=== PATIENT | female | born 1965 | race Caucasian/White ===

== ENCOUNTER 2020-12-24 10:41 | Day surgery (SDC) | payer BC ==
[~2020-12-24 10:41] MED LIST: Lactated Ringers 1,000 ML IV SCH; Lidocaine 1%/Sod Bicarbonate in NS 8.4% 1 ML Syringe IDERM PRN; Sodium Chloride 0.9% 10 ML Syringe FLUSH PRN
--- NOTE | 2020-12-24 11:24 | PCM.PREANE ---
Preanesthetic Assessment - Procedure Proposed Procedure: Left carpal tunnel release and right carpal tunnel inj. - Anesthesia/Transfusion/Family Hx Anesthesia History: Prior Anesthesia Without Reaction Family History of Anesthesia Reaction: No Transfusion History: No Prior Transfusion(s) - Review of Systems General: No Symptoms Pulmonary: Cough (smokers) Cardiovascular: No Symptoms Gastrointestinal: No Symptoms Neurological: Numbness (bilateral wrists ) Other: Reports: Diabetes (gluco check at 11:00 101) - Physical Assessment Vital Signs: Last Vital Signs Temp 36.8 C 12/24/20 10:45 Pulse 60 12/24/20 10:45 Resp 16 12/24/20 10:45 BP 123/80 12/24/20 10:45 Pulse Ox 95 12/24/20 10:45 Height: 1.6 m Weight: 73 kg ASA Class: 2 Mental Status: Alert & Oriented x3 Airway Class: Mallampati = 1 Dentition: Reports: Broken Tooth/Teeth Thyro-Mental Finger Breadths: 3 Mouth Opening Finger Breadths: 3 ROM/Head Extension: Full Lungs: Clear to Auscultation, Normal Respiratory Effort, Decreased Breath Sounds (bases clear on cough) Cardiovascular: Regular Rate, Regular Rhythm - Lab Values: Laboratory Last Values POC Glucose 101 mg/dL (70-99) H 12/24/20 10:53 - Allergies Allergies/Adverse Reactions: Allergies Allergy/AdvReac Type Severity Reaction Status Date / Time LB Inhibitors Allergy Cough Verified 12/24/20 11:12 - Anesthesia Plan Pre-Op Medication Ordered: Beta Juan Beta Juan: Metoprolol Med Last Dose Date: 12/24/20 Med Last Dose Time: 09:00 - Acknowledgements Anesthesia Type Planned: MAC Pt an Appropriate Candidate for the Planned Anesthesia: Yes Alternatives and Risks of Anesthesia Discussed w Pt/Guardian: Yes Pt/Guardian Understands and Agrees with Anesthesia Plan: Yes PreAnesthesia Questionnaire Cardiovascular History: Reports: High Cholesterol, Hypertension Respiratory History: Reports: Bronchitis, Recurrent Gastrointestinal History: Reports: None Genitourinary History: Reports: None COMMUNITY AFFAIRS MANAGER History: Reports: None Musculoskeletal History: Reports: Other (See Below) Other Musculoskeletal History: carpal tunnel syndrome Neurological History: Reports: None Psychiatric History: Reports: None Endocrine/Metabolic History: Reports: Diabetes, Type II, Obesity/BMI 30+ Hematologic History: Reports: None Immunologic History: Reports: None Oncologic (Cancer) History: Reports: None Dermatologic History: Reports: Other (See Below) Other Dermatologic History: contact dermatitis, periapical abcess - Infectious Disease History Infectious Disease History: Reports: None - Past Surgical History Head Surgeries/Procedures: Reports: None HEENT Surgical History: Reports: Naso-Sinus Surgery, Tonsillectomy Cardiovascular Surgical History: Reports: None Respiratory Surgical History: Reports: None GI Surgical History: Reports: Appendectomy, Colonoscopy Female Surgical History: Reports: Hysterectomy Male Surgical History: Reports: None Endocrine Surgical History: Reports: None Neurological Surgical History: Reports: None Musculoskeletal Surgical History: Reports: None Oncologic Surgical History: Reports: None Dermatological Surgical History: Reports: None - SUBSTANCE USE Tobacco Use Status *Q: Current Every Day Tobacco User Tobacco Use Within Last Twelve Months: Cigarettes Second Hand Smoke Exposure: Yes Recreational Drug Use History: No - HOME MEDS Home Medications: Home Meds Buprenorphine HCl/Naloxone HCl [Buprenorphine-Nalox 8-2Mg Film] 2 film PO DAILY 12/23/20 [History] Empagliflozin [Jardiance] 25 mg PO DAILY 12/23/20 [History] Ibuprofen 600 mg PO TID PRN #10 tablet 12/23/20 [Rx] Metoprolol Succinate [Toprol Xl] 50 mg PO DAILY 12/23/20 [History] Multivitamin [Super Multivitamin] 1 tab PO DAILY 12/23/20 [History] atorvaSTATin [Lipitor] 10 mg PO DAILY 12/23/20 [History] - CURRENT (IN HOUSE) MEDS Current Meds: Current Medications Lactated Ringer's (Ringers, Lactated) 1,000 mls @ 125 mls/hr IV ASDIRECTED CHRISTA Stop: 12/24/20 23:00 Last Admin: 12/24/20 11:13 Dose: 125 mls/hr Documented by: Lidocaine/Sodium Bicarbonate (Lidocaine 1%/Sod Bicarbonate In Ns 8.4% 1 Ml Syringe) 0.25 ml IDERM ONETIME PRN PRN Reason: Prior to IV Start Stop: 12/24/20 18:00 Sodium Chloride (Sodium Chloride 0.9% 10 Ml Syringe) 10 ml FLUSH ASDIRECTED PRN PRN Reason: Keep Vein Open Stop: 12/24/20 18:00
[2020-12-24] MEDS ORDERED: Midazolam 1 MG/ML 2 ML SDV ONE (11:33)
[2020-12-24] MEDS ORDERED: Lidocaine 1% 4 ML ONE (11:33)
[2020-12-24] MEDS ORDERED: Propofol 200 MG/20 ML SDV ONE ×2 (11:33→12:30)
[2020-12-24] MEDS ORDERED: Lidocaine 1% 30 ML SDV ONE (11:55)
[2020-12-24] MEDS ORDERED: Bupivacaine 0.25% 10 ML SDV ONE (11:55)
[2020-12-24] MEDS ORDERED: Triamcinolone Acetonide 40 MG/ML 1 ML SDV ONE (11:55)
--- NOTE | 2020-12-24 12:51 | PCM48HPAN ---
Post Anesthesia Note - EVALUATION WITHIN 48HRS OF ANESTHETIC Vital Signs in Normal Range: Yes Patient Participated in Evaluation: Yes Respiratory Function Stable: Yes Airway Patent: Yes Cardiovascular Function Stable: Yes Hydration Status Stable: Yes Pain Control Satisfactory: Yes Nausea and Vomiting Control Satisfactory: Yes Mental Status Recovered: Yes Vital Signs: Last Vital Signs Temp 36.8 C 12/24/20 10:45 Pulse 60 12/24/20 10:45 Resp 16 12/24/20 10:45 BP 123/80 12/24/20 10:45 Pulse Ox 95 12/24/20 10:45
--- NOTE | 2020-12-24 12:53 | PCM.OPNOTE ---
- General Post-Op/Procedure Note Date of Surgery/Procedure: 12/24/20 Operative Procedure(s): left carpal tunnel release with right carpal tunnel injection Pre Op Diagnosis: bilateral median nerve compression neuropathy Post-Op Diagnosis: Same Anesthesia Technique: Local, MAC Primary Surgeon: Cameron Blake Anesthesia Provider: Bill Yeager Sap Abap Programmer: Lidia Liz EBL in mLs: 5 Complications: None Condition: Good
--- NOTE | 2021-01-06 07:27 | OR ---
DATE OF OPERATION: 12/24/2020 SURGEON: Cameron Blake MD OPERATION PERFORMED: Left carpal tunnel release with right carpal tunnel injection. PREOPERATIVE DIAGNOSIS: Bilateral median nerve compression neuropathy. POSTOPERATIVE DIAGNOSIS: Bilateral median nerve compression neuropathy. ANESTHESIA: Local MAC with spinal. ANESTHESIA PROVIDER: Bill Yeager CRNA CRIMPER OPERATOR: Lidia Liz PA-C ESTIMATED BLOOD LOSS: Less than 5 mL. COMPLICATIONS: None. CONDITION: Stable. DESCRIPTION OF PROCEDURE: The patient was identified in the preop holding area. Proper site was marked and identified by the surgeon. The patient was taken back to the operating theater where after adequate anesthesia, the patient's left upper extremity was sterilely prepped and draped in the usual sterile fashion. OR time-out was performed. The patient did not receive antibiotics and it is not indicated for soft tissue hand procedure. At this time, the left upper extremity was exsanguinated and an Esmarch was used as a tourniquet on the forearm. At this time, using 1% lidocaine without epinephrine and 0.25% Marcaine without epinephrine, the palmar cutaneous branch of the median nerve was anesthetized and then the incisional site was anesthetized using Rodas cardinal line and ulnar border of the fourth digit as reference. Once this had set up, an incision was made. Blunt dissection was taken down to the palmar cutaneous fascia. Palmar cutaneous fascia was incised with a Gallia blade. At this time, the transverse carpal ligament was identified. A small rent was made in the transverse carpal ligament with a Gallia blade under direct visualization. Resection of the transverse carpal ligament was done distally using tenotomy scissors making sure to stop short of the palmar arch. At this time, attention was turned proximally after it was found to be adequately released. Using the tenotomy scissors keeping the tips ulnar to protect the palmar cutaneous branch of the median nerve, the superficial forearm fascia as well as the transverse carpal ligament were resected proximally. It was found to be adequate release both proximally and distally. At this time, adequate saline was irrigated through the wound. 4-0 nylon sutures were used closure of the skin. The patient was placed in a sterile soft dressing and sent to PACU in stable condition. After this was completed, under sterile technique, 1 mL of 40 mg Kenalog and 2 mL of 0.25% Marcaine were injected into the right carpal tunnel. The patient tolerated all procedures well. DESMOND /[id number]
== END 2020-12-24 13:25 | disposition home or self-care (01) ==
LOC: JD.SDS 10:41
PROVIDERS: ATTEND Orthopaedic Surgery
DX: G56.13 Other lesions of median nerve, bilateral upper limbs (principal); I10 Essential (primary) hypertension; E78.00 Pure hypercholesterolemia, unspecified; E66.9 Obesity, unspecified; F17.210 Nicotine dependence, cigarettes, uncomplicated; Z90.49 Acquired absence of other specified parts of digestive tract; Z98.890 Other specified postprocedural states; Z88.8 Allergy status to other drugs, medicaments and biological substances; Z79.899 Other long term (current) drug therapy; Z68.29 Body mass index [BMI] 29.0-29.9, adult
CPT/HCPCS: 20526; 64721; 82947; J2250; J2704; J3301; J3490; J7120; 01810

== ENCOUNTER 2021-10-19 14:03 | Emergency (ER) | payer BC ==
[2021-10-19] MEDS ORDERED: Albuterol/Ipratropium 3.0-0.5 MG/3 ML Neb Soln NEB PRN ×2 (16:02→16:56)
[2021-10-19] MEDS ORDERED: Albuterol 6.7 GM Inhaler INH PRN (16:57)
[2021-10-19 16:58] LABS: CORONAVIRUS COVID-19 NAA NEGATIVE (NEGATIVE)
[2021-10-19] MEDS ORDERED: predniSONE 20 MG Tab PO ONE (16:58)
== END 2021-10-19 18:03 | disposition home or self-care (01) ==
LOC: JD.ED 14:03
DX: J44.9 Chronic obstructive pulmonary disease, unspecified (principal); J06.9 Acute upper respiratory infection, unspecified; I10 Essential (primary) hypertension; E11.9 Type 2 diabetes mellitus without complications; F17.210 Nicotine dependence, cigarettes, uncomplicated; E66.9 Obesity, unspecified; Z68.26 Body mass index [BMI] 26.0-26.9, adult; Z88.8 Allergy status to other drugs, medicaments and biological substances; Z79.899 Other long term (current) drug therapy; Z90.49 Acquired absence of other specified parts of digestive tract; Z90.710 Acquired absence of both cervix and uterus; Z20.822 Contact with and (suspected) exposure to COVID-19
CPT/HCPCS: 0240U; 71045; 94640; 99284; A9270; J7512; J7620-GY

== ENCOUNTER 2021-12-03 05:55 | Day surgery (SDC) | payer BC ==
[~2021-12-03 05:55] MED LIST changes: +Sodium Chloride 0.9% 10 ML Syringe FLUSH SCH
[2021-12-03] MEDS ORDERED: Midazolam 1 MG/ML 2 ML SDV ONE (06:33)
[2021-12-03] MEDS ORDERED: Propofol 200 MG/20 ML SDV ONE (06:33)
[2021-12-03] MEDS ORDERED: Lidocaine 1% 4 ML ONE (06:34)
[2021-12-03] MEDS ORDERED: Bupivacaine 0.25% 10 ML SDV ONE (06:34)
[2021-12-03] MEDS ORDERED: Lidocaine 1% 10 ML MDV ONE (06:34)
[2021-12-03] MEDS ORDERED: Ondansetron 4 MG/2 ML SDV ONE (07:13)
== END 2021-12-03 08:39 | disposition home or self-care (01) ==
LOC: JD.SDS 05:55
PROVIDERS: ATTEND Orthopaedic Surgery
DX: G56.11 Other lesions of median nerve, right upper limb (principal); E78.00 Pure hypercholesterolemia, unspecified; E11.9 Type 2 diabetes mellitus without complications; I10 Essential (primary) hypertension; F17.210 Nicotine dependence, cigarettes, uncomplicated; E66.9 Obesity, unspecified; Z68.27 Body mass index [BMI] 27.0-27.9, adult; Z88.8 Allergy status to other drugs, medicaments and biological substances; Z79.899 Other long term (current) drug therapy; Z90.49 Acquired absence of other specified parts of digestive tract; Z98.890 Other specified postprocedural states
CPT/HCPCS: 64721; J2250; J2405; J2704; J3490; J7120; 01810